=== PATIENT | female | born 1970 | race Caucasian/White ===

== ENCOUNTER 2020-11-21 17:17 | Emergency (ER) | payer BC ==
[~2020-11-21] VITALS: Ht 170.2 cm; Wt 68.0 kg
[2020-11-21] MEDS ORDERED: MORPHINE SULFATE 10 MG/ML CPJ IM ONE (18:15)
[2020-11-21] MEDS ORDERED: SODIUM CHLORIDE 0.9% 1,000 ML IV ONE (18:45)
[2020-11-21] MEDS ORDERED: PROPOFOL 200MG/20ML VIAL IV ONE (18:45)
[2020-11-21] MEDS ORDERED: ONDANSETRON HCL 4MG/2ML INJ IV PRN (18:45)
[2020-11-21] MEDS ORDERED: MORPHINE SULFATE 2 MG/ML CPJ (NOT FOR IM USE) IV ONE (20:45)
[2020-11-21 23:22] VITALS: BP 127/76
== END 2020-11-21 23:30 | disposition home or self-care (01) ==
LOC: ER 17:17
DX: S93.04XA Dislocation of right ankle joint, initial encounter (principal); W50.2XXA Accidental twist by another person, initial encounter; Y93.89 Activity, other specified; Y92.89 Other specified places as the place of occurrence of the external cause; Y99.8 Other external cause status
CPT/HCPCS: 29515; 73600; 96361; 96374; 96375; 99285; J2270; J2405; J2704; J7030